=== PATIENT | male | born 1985 | race Caucasian/White ===

== ENCOUNTER 2021-12-10 02:58 | Emergency (ER) | payer SELFPAY ==
[~2021-12-10] VITALS: Ht 165.1 cm; Wt 70.0 kg
[2021-12-10 03:17] VITALS: BP 0/0
== END 2021-12-10 03:20 | disposition home or self-care (01) ==
LOC: ER 02:58
DX: Z00.00 Encounter for general adult medical examination without abnormal findings (principal); Z93.3 Colostomy status; F17.290 Nicotine dependence, other tobacco product, uncomplicated
CPT/HCPCS: 99281